=== PATIENT | male | born 1995 | race African-American/Black ===

== ENCOUNTER 2016-10-12 15:37 | Emergency (ER) | payer OTHER ==
[~2016-10-12] VITALS: Ht 172.7 cm; Wt 63.5 kg
[2016-10-12] VITALS (15 sets, daily range): BP systolic 101–146; BP diastolic 52–88
--- NOTE | 2016-10-12 15:49 | Emergency Room Report ---
History of Present Illness General Chief Complaint: Behavioral Complaint Source: Patient, EMS Present Illness HPI EMS was called to intersection by ki Hummel for this patient who had cut his neck and was despondent and wanted to end his life. He said to be involved as he was combative. SS the neck injury to be superficial. They will to calm the patient down in the 90 to give him for said that. He is tachycardic. Accu- Chek was 86 in the field. Patient states that he was cutting himself to get help. He states he does a lot of in his life but is asking for help at this time. He admits to the alcohol and the methamphetamine. He denies any other medical problems. He does have a history of schizoaffective disorder. He cuts himself "to get help" . Denies SI or HI. Not organized speech to answer other questions. Tetanus up to date. Allergies: Coded Allergies: No Known Allergies (Unverified , 10/12/16) Patient History Limited by: medical condition Past Medical History: see triage record Social History: Reports: alcohol use, drug use, smoking Social History Narrative homeless Reviewed Nursing Documentation: PMH: Agreed, PSxH: Agreed Nursing Documentation-PMH Past Medical History: No History, Except For Hx Seizures: Yes Review of Systems All Other Systems: limited Physical Exam Vital Signs Date Time Temp Pulse Resp B/P Pulse Ox O2 Delivery O2 Flow Rate FiO2 10/12/16 15:33 130 20 134/71 99 Room Air Sp02 EP Interpretation: reviewed, normal General Appearance: well appearing, mild distress, other - GCS 14 Head: normocephalic, atraumatic Eyes: bilateral eye PERRL, bilateral eye Scleral Injection ENT: moist mucus membranes Neck: supple, other - superficial lacerations R neck, not through dermis Respiratory: chest non-tender, lungs clear, normal breath sounds Cardiovascular #1: tachycardia Cardiovascular #2: 2+ radial (R) Gastrointestinal: normal inspection, non tender, no mass, non-distended, abnormal bowel sounds - decreased, scaphoid Musculoskeletal: back normal, gait/station normal, normal range of motion Neurologic: alert, motor strength/tone normal, oriented - X2 Psychiatric: other - agitated Skin: warm/dry, other - Intention shoemaker and fresh lacs neck, abrasions - R MCP dorsally Medical Decision Making Diagnostic Impression: Primary Impression: Psychosis Qualified Codes: F29 - Unspecified psychosis not due to a substance or known physiological condition Additional Impression: Laceration of neck Qualified Codes: S11.91XA - Laceration without foreign body of unspecified part of neck, initial encounter ER Course The patient presents with psychiatric emergency with cutting his neck. The cuts are superficial. Needs to evaluated with EKG, labs. He will received IV hydration here. If we're able to medically clear him he will need a psychiatric evaluation. DDx: exacerbation of schizophrenia, drug induced psychosis, electrolyte abnormality amongst others. Needs restraints as harm to self. Patient out of restraints. Started acting out again, hitting wall "to break my knuckles". Placed again in restraints. Trying to find what medicines he is on (?Resperal). Unable to de-escalate. Haldol, ativan and benadryl ordered to sedate patient. Labs remarkable for + tox and BA. Sedated and removed from restraints. Will need re-evaluation in AM when sober. Most likely will need PET eval. Signed out to Dr. Christopher. Laboratory Tests Test 10/12/16 16:00 10/12/16 16:31 White Blood Count 9.6 K/UL (4.8-10.8) Red Blood Count 4.45 M/UL (4.70-6.10) L Hemoglobin 14.0 G/DL (14.2-18.0) L Hematocrit 40.6 % (42.0-52.0) L Mean Corpuscular Volume 91 FL (80-99) Mean Corpuscular Hemoglobin 31.6 PG (27.0-31.0) H Mean Corpuscular Hemoglobin Concent 34.6 G/DL (32.0-36.0) Red Cell Distribution Width 12.7 % (11.6-14.8) Platelet Count 228 K/UL (150-450) Mean Platelet Volume 8.2 FL (6.5-10.1) Neutrophils (%) (Auto) 67.7 % (45.0-75.0) Lymphocytes (%) (Auto) 20.9 % (20.0-45.0) Monocytes (%) (Auto) 10.2 % (1.0-10.0) H Eosinophils (%) (Auto) 0.1 % (0.0-3.0) Basophils (%) (Auto) 1.1 % (0.0-2.0) Sodium Level 142 mEQ/L (135-145) Potassium Level 3.5 mEQ/L (3.4-4.9) Chloride Level 99 mEQ/L (98-107) Carbon Dioxide Level 18 mEQ/L (20-30) L Anion Gap 25 (5-15) H Blood Urea Nitrogen 13 mg/dL (7-23) Creatinine 1.0 mg/dL (0.7-1.2) Estimate Glomerular Filtration Rate > 60 mL/min (>60) Glucose Level 83 mg/dL (74-106) Calcium Level 9.3 mg/dL (8.6-10.2) Total Bilirubin 0.8 mg/dL (0.0-1.2) Aspartate Amino Transferase (AST) 32 U/L (5-40) Alanine Aminotransferase (ALT) 13 U/L (3-41) Alkaline Phosphatase 64 U/L (40-129) Total Protein 7.2 g/dL (6.6-8.7) Albumin 4.6 g/dL (3.5-5.2) Globulin 2.6 g/dL Albumin/Globulin Ratio 1.7 (1.0-2.7) Salicylates Level < 1 mg/dL (10-30) L Acetaminophen Level < 10 ug/mL (10-30) L Serum Alcohol 167 mg/dL Urine Color Pale yellow Urine Appearance Clear Urine pH 5 (4.5-8.0) Urine Specific [place] 1.010 (1.005-1.035) Urine Protein Negative (NEGATIVE) Urine Glucose (UA) Negative (NEGATIVE) Urine Ketones Negative (NEGATIVE) Urine Occult Blood Negative (NEGATIVE) Urine Nitrite Negative (NEGATIVE) Urine Bilirubin Negative (NEGATIVE) Urine Urobilinogen Normal MG/DL (0.0-1.0) Urine Leukocyte Esterase Negative (NEGATIVE) Urine Opiates Screen Negative (NEGATIVE) Urine Barbiturates Screen Negative (NEGATIVE) Phencyclidine (PCP) Screen Negative (NEGATIVE) Urine Amphetamines Screen Positive (NEGATIVE) H Urine Benzodiazepines Screen Negative (NEGATIVE) Urine Cocaine Screen Positive (NEGATIVE) H Urine Marijuana (THC) Screen Negative (NEGATIVE) EKG Diagnostic Results Rate: tachycardiac ST Segments: no acute changes Rhythm Strip Diag. Results EP Interpretation: yes Rhythm: no PVC's, no ectopy, other - Sinus tachycard Last Vital Signs Date Time Temp Pulse Resp B/P Pulse Ox O2 Delivery O2 Flow Rate FiO2 10/12/16 20:30 88 12 100 Room Air 10/12/16 20:30 98.4 128/74 Status: improved Efrain Saenz M.D. Oct 12, 2016 15:49
[2016-10-12] MEDS ORDERED: Bacitracin Oint UD TOPIC ONE (16:00)
[2016-10-12 16:24] LABS: BASOPHILS % (AUTO) 1.1 % (0.0-2.0); EOSINOPHILS % (AUTO) 0.1 % (0.0-3.0); LYMPHOCYTES % (AUTO) 20.9 % (20.0-45.0); MEAN CORPUSCULAR HEMOGLOBIN 31.6 PG (27.0-31.0); MEAN CORPUSCULAR HGB CONC 34.6 G/DL (32.0-36.0); MEAN CORPUSCULAR VOLUME 91 FL (80-99); MEAN PLATELET VOLUME 8.2 FL (6.5-10.1); MONOCYTES % (AUTO) 10.2 % (1.0-10.0); NEUTROPHILS % (AUTO) 67.7 % (45.0-75.0); PLATELET COUNT 228 K/UL (150-450); RED BLOOD COUNT 4.45 M/UL (4.70-6.10); RED CELL DISTRIBUTION WIDTH 12.7 % (11.6-14.8); WHITE BLOOD COUNT 9.6 K/UL (4.8-10.8)
[2016-10-12 17:02] LABS: APPEARANCE,URINE CLEAR; KETONES,URINE NEGATIVE (NEGATIVE); LEUKOCYTE ESTERASE ,URINE NEGATIVE (NEGATIVE); NITRITE,URINE NEGATIVE (NEGATIVE); PH,URINE 5 (4.5-8.0); PROTEIN,URINE NEGATIVE (NEGATIVE); UROBILINOGEN,URINE NORMAL MG/DL (0.0-1.0)
[2016-10-12 17:05] LABS: ACETAMINOPHEN < 10 ug/mL (10-30); ALANINE AMINOTRANSFERASE 13 U/L (3-41); ALBUMIN/GLOBULIN RATIO 1.7 (1.0-2.7); ALCOHOL 167 mg/dL; ANION GAP 25 (5-15); ASPARTATE AMINO TRANSFERASE 32 U/L (5-40); CALCIUM 9.3 mg/dL (8.6-10.2); CARBON DIOXIDE 18 mEQ/L (20-30); CHLORIDE 99 mEQ/L (98-107); GLOMERULAR FILTRATION RATE > 60 mL/min (>60); HEMOLYSIS 8; POTASSIUM 3.5 mEQ/L (3.4-4.9); SODIUM 142 mEQ/L (135-145); TOTAL PROTEIN 7.2 g/dL (6.6-8.7)
[2016-10-12] MEDS ORDERED: KEPPRA500 M4 ORAL (19:16)
[2016-10-12] MEDS ORDERED: Haloperidol 5mg/ml Inj IM ONE (19:30)
[2016-10-12] MEDS ORDERED: LORazepam Inj 2mg/ml 1ml IM ONE (19:30)
[2016-10-12] MEDS ORDERED: DiphenhydrAMINE 50mg/ml Inj IM ONE (19:30)
[2016-10-13] VITALS (8 sets, daily range): BP systolic 113–139; BP diastolic 57–84
[2016-10-13] MEDS ORDERED: Depakote ER 500mg tab ORAL ONE (09:15)
[2016-10-13] MEDS ORDERED: Bacitracin Oint UD TOPIC ONE (09:15)
[2016-10-13] MEDS ORDERED: KEPPRA500 M4 ORAL (09:17)
[2016-10-13] MEDS ORDERED: SERTRALINE HCL100 MG PO (09:17)
[2016-10-13] MEDS ORDERED: DIVALPROEX SOD250 M1 PO (09:17)
[2016-10-13] MEDS ORDERED: BANOPHEN50 MG PO (09:17)
[2016-10-13] MEDS ORDERED: IBUPROFEN600 MG ORAL (09:17)
[2016-10-13] MEDS ORDERED: BENZTROPINE MESY1 MG PO (09:18)
[2016-10-13] MEDS ORDERED: RISPERIDONE1 MG/1 ML IM (09:26)
--- NOTE | 2016-10-14 00:26 | Consultation ---
History of Present Illness General Chief Complaint: Behavioral Complaint Present Illness HPI the pt is a 21 yo male with hx of meth and alcohol use. was brought in last night .MS was called to intersection by ki Hummel for this patient who had cut his neck with plastic knife and was despondent and wanted to end his life. He said to be involved as he was combative. SS the neck injury to be superficial. They will to calm the patient down in the 90 to give him for said that. He is tachycardic. Accu-Chek was 86 in the field. During the eval the pt stated that he was on meth and felt very anxious and wanted to hurt himself the pt stated that he was paranoid and scared the pt stated that he would like to sleep. Denies SI or HI. he didnt endorse psychotic sxs. Allergies: Coded Allergies: No Known Allergies (Unverified , 10/12/16) Medication History Scheduled Benztropine Mesylate* (Benztropine Mesylate*), 1 MG PO BEDTIME, (Reported) Diphenhydramine Hcl (Banophen), 50 MG PO BEDTIME, (Reported) Divalproex Sodium (Divalproex Sodium Er), 250 MG PO BID, (Reported) Levetiracetam (Keppra), 500 MG ORAL EVERY 12 HOURS, (Reported) Risperidone (Risperidone), 12.5 MG IM EVERy 2 WEEKS, (Reported) Sertraline Hcl* (Zoloft*), 100 MG PO DAILY, (Reported) Scheduled PRN Ibuprofen* (Motrin*), 800 MG ORAL Q8H PRN for For Pain, (Reported) Patient History History Provided By: Patient, Medical Record, PMD Healthcare decision maker Resuscitation status Advanced Directive on File Past Medical/Surgical History Past Medical/Surgical History: (1) Drug abuse Review of Systems Constitutional: Reports: malaise, weakness Psychiatric: Reports: anxiety, depressed feelings, emotional problems, prior hx , see HPI Physical Exam General Appearance: no apparent distress, alert, thin Neurologic: alert, oriented x 3, responsive Last 24 Hour Vital Signs Date Time Temp Pulse Resp B/P Pulse Ox O2 Delivery O2 Flow Rate FiO2 10/13/16 13:21 78 16 120/80 98 Room Air 10/13/16 11:29 98.1 95 16 139/57 99 Room Air 10/13/16 07:49 97.9 91 14 113/67 98 Room Air 10/13/16 06:30 98.0 72 15 118/82 99 Room Air 10/13/16 04:40 97.8 73 16 125/84 100 Room Air 10/13/16 03:30 72 14 120/72 98 Room Air 10/13/16 01:25 98.2 76 17 118/69 100 Room Air Height (Feet): 5 Height (Inches): 8.00 Weight (Pounds): 140 Assessment/Plan Status: stable Assessment/Plan meth induced psychosis and agitation - the pt has received antipsychotics in er -not meet the criteria for 5150 hold or iplc -dc with referrals Charlette Sanchez M.D. Oct 14, 2016 00:26
--- NOTE | 2016-10-14 19:11 | Cardiology Report ---
APPROVED REPORT EKG Measurement Heart [id number] Sinus tachycardia Nonspecific T wave abnormality Abnormal ECG
== END 2016-10-13 13:23 | disposition home or self-care (01) ==
LOC: EDBD 15:37 → EMR 16:14
DX: F29 Unspecified psychosis not due to a substance or known physiological condition (principal); S11.91XA Laceration without foreign body of unspecified part of neck, initial encounter; X78.8XXA Intentional self-harm by other sharp object, initial encounter; Y92.410 Unspecified street and highway as the place of occurrence of the external cause
CPT/HCPCS: 36415; 80053; 80299; 80300; 80329; 81003; 85025; 93005; 96360; 96372; 96374; 99284; J1200; J1630